=== PATIENT | female | born 1945 | race Caucasian/White ===

== ENCOUNTER 2018-01-03 12:40 | Emergency (ER) | payer MEDICARE, OTHER, MEDICAID ==
[~2018-01-03] VITALS: Ht 152.4 cm; Wt 57.3 kg
[~2018-01-03 12:40] MED LIST: ATI1T PO; DIO80T PO; FAMO-128 PO; FLUO20CA22 PO; FLUT16SP2 BOTHNARES; HYDR-3965 PO; LEVO250T58 PO; MULT1TAB70 PO
[2018-01-03 12:44] VITALS: BP 133/66
== END 2018-01-03 14:10 | disposition home or self-care (01) ==
LOC: ER 12:41
DX: N28.1 Cyst of kidney, acquired (principal); Q44.6 Cystic disease of liver; I11.0 Hypertensive heart disease with heart failure; I50.9 Heart failure, unspecified; N83.201 Unspecified ovarian cyst, right side; N83.202 Unspecified ovarian cyst, left side; Z99.2 Dependence on renal dialysis; Z90.710 Acquired absence of both cervix and uterus; Z90.49 Acquired absence of other specified parts of digestive tract; Z88.2 Allergy status to sulfonamides; Z86.73 Personal history of transient ischemic attack (TIA), and cerebral infarction without residual deficits
CPT/HCPCS: 74176; 99284

== ENCOUNTER 2019-09-08 14:14 | Emergency (ER) | payer MEDICARE, BC, MEDICAID ==
[~2019-09-08] VITALS: Ht 152.4 cm; Wt 55.5 kg
[~2019-09-08 14:14] MED LIST changes: +FLUO-167 PO; -FLUO20CA22 PO
--- NOTE | 2019-09-08 15:22 | NUR ---
PT OUT TO CT VIA WHEELCHAIR WITH PRODUCTION LINE ASSEMBLER
--- NOTE | 2019-09-08 15:39 | NUR ---
pt returns from ct
--- NOTE | 2019-09-08 15:40 | NUR ---
Came into room and pt was drinking water from home.
--- NOTE | 2019-09-08 15:54 | NUR ---
pt has fistula on left arm. no labs/iv/bp on left
[2019-09-08 16:16] LABS: BASOPHILS % (AUTO) 0.9 % (0-1); EOSINOPHILS # (AUTO) 0.1 X10'3 (0-0.9); EOSINOPHILS % (AUTO) 2.6 % (0-6); HEMATOCRIT 32.6 % (35.0-45.0); HEMOGLOBIN 10.8 g/dl (12.0-16.0); LYMPHOCYTES # (AUTO) 0.9 X10'3 (1.1-4.8); LYMPHOCYTES % (AUTO) 18.5 % (21-51); MEAN CORPUSCULAR HEMOGLOBIN 31.9 PG (27.0-31.0); MEAN CORPUSCULAR HGB CONC 33.1 g/dL (33.0-36.5); MEAN CORPUSCULAR VOLUME 96.4 FL (78-98); MONOCYTES # (AUTO) 0.5 X10'3 (0-0.9); MONOCYTES % (AUTO) 9.4 % (2-12); NEUTROPHILS # (AUTO) 3.5 X10'3 (1.8-7.7); NEUTROPHILS % (AUTO) 68.6 % (42-75); PLATELET COUNT 159 X10'3 (140-440); RED BLOOD COUNT 3.38 X10'6 (4.20-5.60); RED CELL DISTRIBUTION WIDTH 15.4 % (11.5-14.5); WHITE BLOOD COUNT 5.1 X10'3 (4.5-11.0)
[2019-09-08 16:37] LABS: ALANINE AMINOTRANSFERASE 15 U/L (12-78); ALBUMIN 3.1 G/DL (3.4-5.0); ALBUMIN/GLOBULIN RATIO 0.8 (1.1-1.5); ALKALINE PHOSPHATASE 103 IU/L (46-116); ANION GAP 7 (8-16); ASPARTATE AMINO TRANSFERASE 17 U/L (10-37); BILIRUBIN,TOTAL 0.6 MG/DL (0.1-1.0); BLOOD UREA NITROGEN 32 MG/DL (7-18); BUN/CREATININE RATIO 6.7 (6.6-38.0); CALCIUM 8.8 MG/DL (8.5-10.1); CHLORIDE 101 MMOL/L (99-107); CREATININE 4.76 MG/DL (0.40-0.90); GLUCOSE 89 MG/DL (70-104); POTASSIUM 3.3 MMOL/L (3.5-5.1); SODIUM 143 MMOL/L (135-145); TOTAL PROTEIN 7.2 G/DL (6.4-8.2); eGFR 9 ML/MIN
[2019-09-08 16:54] LABS: COLOR,URINE STRAW (Yellow); GLUCOSE, URINE NEGATIVE (Neg); KETONES,URINE NEGATIVE (Neg); LEUKOCYTE ESTERASE ,URINE NEGATIVE (Neg); NITRITES, URINE NEGATIVE (Neg); OCCULT BLOOD,URINE MODERATE (Neg); PH,URINE 8.5 (4.8-8.0); PROTEIN,URINE 100 mg/dl (Neg); UROBILINOGEN,URINE 0.2 E.U/dL (0.2-1.0)
[2019-09-08 17:01] VITALS: BP 148/70
[2019-09-08 17:01] LABS: UA COLLECTION TYPE CLN CATCH MIDSTREAM
[2019-09-08 17:02] LABS: CLARITY,URINE SLIGHTLY CLOUDY (Clear)
[2019-09-08 17:10] LABS: BACTERIA,URINE FEW /HPF (Neg); SQUAMOUS EPITHELIAL CELL,UR FEW /LPF (FEW)
== END 2019-09-08 17:04 | disposition home or self-care (01) ==
LOC: ER 14:14
DX: J90 Pleural effusion, not elsewhere classified (principal); I11.0 Hypertensive heart disease with heart failure; I50.9 Heart failure, unspecified; Z86.73 Personal history of transient ischemic attack (TIA), and cerebral infarction without residual deficits; Z90.49 Acquired absence of other specified parts of digestive tract; Z98.890 Other specified postprocedural states; Z90.710 Acquired absence of both cervix and uterus; Z99.2 Dependence on renal dialysis; Z88.2 Allergy status to sulfonamides; Z79.899 Other long term (current) drug therapy
CPT/HCPCS: 36415; 71045; 74176; 80053; 81001; 83880; 85025; 87088; 93005; 99284

== ENCOUNTER 2019-10-18 08:54 | Day surgery (SDC) | payer MEDICARE, BC, MEDICAID ==
[2019-10-18] VITALS (15 sets, daily range): BP systolic 108–133; BP diastolic 55–74
[~2019-10-18] VITALS: Ht 152.4 cm; Wt 53.6 kg
[2019-10-18] MEDS ORDERED: normal saline 1000ml 1,000 ML IV PRN (09:15)
[2019-10-18] MEDS ORDERED: LOSA50TA3 PO (09:48)
[2019-10-18] MEDS ORDERED: fentaNYL/PF 50MCG/1 ML 2ML syringe ONE ×2 (09:48→10:41)
[2019-10-18] MEDS ORDERED: MECL-159 PO (09:48)
[2019-10-18] MEDS ORDERED: LORA-660 PO (09:48)
[2019-10-18] MEDS ORDERED: ONDA4TAB12 SL (09:48)
[2019-10-18] MEDS ORDERED: ATI1T PO (09:48)
[2019-10-18] MEDS ORDERED: CALC668T PO (09:48)
[2019-10-18] MEDS ORDERED: PANT-47 PO (09:48)
[2019-10-18] MEDS ORDERED: CHOL10006 PO (09:48)
[2019-10-18] MEDS ORDERED: midazolam 2 mg/2 ml injection ONE (09:48)
[2019-10-18] MEDS ORDERED: CLOB15CR11 TOP (09:48)
[2019-10-18] MEDS ORDERED: VITA-268 PO (09:48)
[2019-10-18] MEDS ORDERED: TRIA15CR61 TOP (09:48)
[2019-10-18 10:19] LABS: BASOPHILS # (AUTO) 0.1 X10'3 (0-0.2); BASOPHILS % (AUTO) 1.1 % (0-1); EOSINOPHILS # (AUTO) 0.2 X10'3 (0-0.9); EOSINOPHILS % (AUTO) 3.4 % (0-6); HEMATOCRIT 39.3 % (35.0-45.0); HEMOGLOBIN 13.2 g/dl (12.0-16.0); LYMPHOCYTES % (AUTO) 19.9 % (21-51); MEAN CORPUSCULAR HEMOGLOBIN 31.6 PG (27.0-31.0); MEAN CORPUSCULAR HGB CONC 33.5 g/dL (33.0-36.5); MEAN CORPUSCULAR VOLUME 94.3 FL (78-98); MEAN PLATELET VOLUME 8.6 FL (7.4-10.4); MONOCYTES # (AUTO) 0.4 X10'3 (0-0.9); MONOCYTES % (AUTO) 6.8 % (2-12); NEUTROPHILS # (AUTO) 3.6 X10'3 (1.8-7.7); NEUTROPHILS % (AUTO) 68.8 % (42-75); PLATELET COUNT 178 X10'3 (140-440); RED BLOOD COUNT 4.17 X10'6 (4.20-5.60); RED CELL DISTRIBUTION WIDTH 15.2 % (11.5-14.5); WHITE BLOOD COUNT 5.3 X10'3 (4.5-11.0)
[2019-10-18 10:30] LABS: ALBUMIN 3.8 G/DL (3.4-5.0); ANION GAP 6 (8-16); BLOOD UREA NITROGEN 42 MG/DL (7-18); BUN/CREATININE RATIO 7.9 (6.6-38.0); CALCIUM 9.9 MG/DL (8.5-10.1); CHLORIDE 99 MMOL/L (99-107); GLUCOSE 83 MG/DL (70-104); POTASSIUM 4.1 MMOL/L (3.5-5.1); SODIUM 141 MMOL/L (135-145); TOTAL CARBON DIOXIDE 35.9 MMOL/L (24-32); eGFR 8 ML/MIN
== END 2019-10-18 12:10 | disposition home or self-care (01) ==
LOC: SSTAY O 08:54
PROVIDERS: ATTEND Radiology Vascular & Interventional Radiology
DX: N28.1 Cyst of kidney, acquired (principal); I11.0 Hypertensive heart disease with heart failure; I50.9 Heart failure, unspecified; Z99.2 Dependence on renal dialysis; Z90.49 Acquired absence of other specified parts of digestive tract; Z90.710 Acquired absence of both cervix and uterus; Z98.890 Other specified postprocedural states; Z88.2 Allergy status to sulfonamides; Z91.041 Radiographic dye allergy status; Z79.899 Other long term (current) drug therapy; Z86.73 Personal history of transient ischemic attack (TIA), and cerebral infarction without residual deficits
CPT/HCPCS: 36415; 49405; 80048; 85025; 85610; J2250; J3010; 99152; 99153

== ENCOUNTER 2019-11-02 11:09 | Emergency (ER) | payer MEDICARE, BC, MEDICAID ==
[~2019-11-02] VITALS: Ht 154.9 cm; Wt 50.0 kg
[~2019-11-02 11:09] MED LIST changes: +CALC668T PO; +CHOL10006 PO; +CLOB15CR11 TOP; -DIO80T PO; -LEVO250T58 PO; +LORA-660 PO; +LOSA50TA3 PO; +MECL-159 PO; +ONDA4TAB12 SL; +PANT-47 PO; +TRIA15CR61 TOP; +VITA-268 PO
[2019-11-02] MEDS ORDERED: oseltamivir phos 75mg capsule PO ONE (12:00)
[2019-11-02 12:48] LABS: BASOPHILS % (AUTO) 0.6 % (0-1); EOSINOPHILS % (AUTO) 0.1 % (0-6); HEMATOCRIT 34.9 % (35.0-45.0); HEMOGLOBIN 11.6 g/dl (12.0-16.0); LYMPHOCYTES # (AUTO) 0.7 X10'3 (1.1-4.8); LYMPHOCYTES % (AUTO) 18.4 % (21-51); MEAN CORPUSCULAR HGB CONC 33.2 g/dL (33.0-36.5); MEAN CORPUSCULAR VOLUME 93.5 FL (78-98); MEAN PLATELET VOLUME 9.1 FL (7.4-10.4); MONOCYTES # (AUTO) 0.4 X10'3 (0-0.9); MONOCYTES % (AUTO) 10.9 % (2-12); NEUTROPHILS # (AUTO) 2.6 X10'3 (1.8-7.7); PLATELET COUNT 138 X10'3 (140-440); RED BLOOD COUNT 3.74 X10'6 (4.20-5.60); RED CELL DISTRIBUTION WIDTH 15.6 % (11.5-14.5); WHITE BLOOD COUNT 3.7 X10'3 (4.5-11.0)
[2019-11-02 12:50] LABS: PARTIAL THROMBOPLASTIN TIME 32 SECONDS (22-32)
[2019-11-02 12:53] LABS: ALANINE AMINOTRANSFERASE 16 U/L (12-78); ALBUMIN/GLOBULIN RATIO 0.7 (1.1-1.5); ALKALINE PHOSPHATASE 126 IU/L (46-116); ANION GAP 9 (8-16); ASPARTATE AMINO TRANSFERASE 25 U/L (10-37); BILIRUBIN,TOTAL 0.5 MG/DL (0.1-1.0); BLOOD UREA NITROGEN 59 MG/DL (7-18); BUN/CREATININE RATIO 8.1 (6.6-38.0); CALCIUM 8.2 MG/DL (8.5-10.1); CHLORIDE 97 MMOL/L (99-107); CREATININE 7.24 MG/DL (0.40-0.90); GLUCOSE 114 MG/DL (70-104); MAGNESIUM 1.9 MG/DL (1.5-2.4); POTASSIUM 4.1 MMOL/L (3.5-5.1); SODIUM 136 MMOL/L (135-145); TOTAL CARBON DIOXIDE 30.1 MMOL/L (24-32); TOTAL PROTEIN 7.6 G/DL (6.4-8.2); eGFR 6 ML/MIN
[2019-11-02 14:09] LABS: COLOR,URINE YELLOW (Yellow); GLUCOSE, URINE NEGATIVE (Neg); KETONES,URINE NEGATIVE (Neg); LEUKOCYTE ESTERASE ,URINE NEGATIVE (Neg); NITRITES, URINE NEGATIVE (Neg); OCCULT BLOOD,URINE LARGE (Neg); PH,URINE 8.5 (4.8-8.0); PROTEIN,URINE >=300 mg/dl (Neg); UROBILINOGEN,URINE 0.2 E.U/dL (0.2-1.0)
[2019-11-02 14:13] LABS: CLARITY,URINE SLIGHTLY CLOUDY (Clear); UA COLLECTION TYPE CLN CATCH MIDSTREAM
[2019-11-02 14:23] LABS: WBC,URINE 0-4 /HPF (0-4)
[2019-11-02 14:24] LABS: BACTERIA,URINE NONE SEEN /HPF (Neg); SQUAMOUS EPITHELIAL CELL,UR FEW /LPF (FEW)
--- NOTE | 2019-11-02 14:30 | NUR ---
SPOKE WITH DR KNAPP AND INQUIRED IF PT TO IV PLACED. IV START TO BE HELD OFF UNTILL FURTHER ORDERS FROM ADMITTING MD.
[2019-11-02] MEDS ORDERED: HYDR-3964 PO (15:08)
[2019-11-02] MEDS ORDERED: FLUO-1 PO (15:10)
[2019-11-02] MEDS ORDERED: FOLI0.4T14 PO (15:13)
[2019-11-02] MEDS ORDERED: SIMV-42 PO (15:14)
[2019-11-02] MEDS ORDERED: PHO667C PO (15:23)
[2019-11-02] MEDS ORDERED: DOCU-261 PO (15:23)
[2019-11-02] MEDS ORDERED: normal saline 1000ml 250 ML IV PRN (15:58)
[2019-11-02] MEDS ORDERED: LIDOcaine 1% (10mg/ml) 2ml vial SQ ONE (16:00)
[2019-11-02] MEDS ORDERED: heparin 1,000 units/ml 10ml inj IV ONE (16:00)
--- NOTE | 2019-11-02 17:55 | NUR ---
PT WALKED TO BED 29 AND PLACED IN RECLINER. DIALYSIS NURSE IN ROOM AND SETTING UP FOR DIALYSIS
--- NOTE | 2019-11-02 18:30 | NUR ---
Pt in room with strategy intern receiving treatment.
[2019-11-02] MEDS ORDERED: TAM75C PO (18:35)
--- NOTE | 2019-11-02 19:43 | NUR ---
Pt receiving dialysis. court deputy at bedside.
[2019-11-02 21:36] VITALS: BP 123/51
== END 2019-11-02 21:37 | disposition home or self-care (01) ==
LOC: ER 11:10
DX: I12.0 Hypertensive chronic kidney disease with stage 5 chronic kidney disease or end stage renal disease (principal); N18.6 End stage renal disease; J11.1 Influenza due to unidentified influenza virus with other respiratory manifestations; Z99.2 Dependence on renal dialysis; Z86.73 Personal history of transient ischemic attack (TIA), and cerebral infarction without residual deficits; Z90.49 Acquired absence of other specified parts of digestive tract; Z90.710 Acquired absence of both cervix and uterus; Z98.890 Other specified postprocedural states; Z88.2 Allergy status to sulfonamides; Z79.899 Other long term (current) drug therapy
CPT/HCPCS: 36415; 71045; 80053; 81001; 83605; 83735; 84145; 85025; 85610; 85730; 87040; 93005; 96372; 99285; J2001; G0257

== ENCOUNTER 2019-11-18 14:51 | Outpatient (CLI) | payer MEDICARE, BC, MEDICAID ==
[~2019-11-18 14:51] MED LIST changes: -ATI1T PO; -CALC668T PO; -CLOB15CR11 TOP; +DOCU-261 PO; -FAMO-128 PO; +FLUO-1 PO; -FLUO-167 PO; +FOLI0.4T14 PO; +HYDR-3964 PO; -HYDR-3965 PO; -LORA-660 PO; -MECL-159 PO; +PHO667C PO; +SIMV-42 PO; -VITA-268 PO
== END 2019-11-18 23:59 | disposition home or self-care (01) ==
LOC: RAD 14:51
PROVIDERS: ATTEND Nurse Practitioner Family
DX: J90 Pleural effusion, not elsewhere classified (principal); J98.11 Atelectasis
CPT/HCPCS: 71046

== ENCOUNTER 2019-12-19 15:33 | Emergency (ER) | payer MEDICARE, BC, MEDICAID ==
[~2019-12-19] VITALS: Ht 152.4 cm; Wt 49.0 kg
--- NOTE | 2019-12-19 16:07 | NUR ---
Pt taken to CT
--- NOTE | 2019-12-19 16:13 | NUR ---
Return from CT scan via w/c.
--- NOTE | 2019-12-19 16:29 | NUR ---
Attempted IV start unsuccessfully x 2 on the right forearm/wrist.
[2019-12-19 16:33] VITALS: BP 131/73
[2019-12-19 16:40] LABS: BASOPHILS # (AUTO) 0.1 X10'3 (0-0.2); BASOPHILS % (AUTO) 0.6 % (0-1); EOSINOPHILS # (AUTO) 0.1 X10'3 (0-0.9); HEMATOCRIT 32.4 % (35.0-45.0); HEMOGLOBIN 10.7 g/dl (12.0-16.0); LYMPHOCYTES # (AUTO) 1.2 X10'3 (1.1-4.8); LYMPHOCYTES % (AUTO) 15.1 % (21-51); MEAN CORPUSCULAR HEMOGLOBIN 31.3 PG (27.0-31.0); MEAN CORPUSCULAR HGB CONC 33.1 g/dL (33.0-36.5); MEAN CORPUSCULAR VOLUME 94.5 FL (78-98); MEAN PLATELET VOLUME 8.3 FL (7.4-10.4); MONOCYTES # (AUTO) 0.9 X10'3 (0-0.9); MONOCYTES % (AUTO) 10.7 % (2-12); NEUTROPHILS # (AUTO) 5.8 X10'3 (1.8-7.7); NEUTROPHILS % (AUTO) 72.6 % (42-75); PLATELET COUNT 143 X10'3 (140-440); RED BLOOD COUNT 3.43 X10'6 (4.20-5.60)
[2019-12-19 16:42] LABS: CLARITY,URINE CLEAR (Clear); COLOR,URINE YELLOW (Yellow); GLUCOSE, URINE NEGATIVE (Neg); KETONES,URINE NEGATIVE (Neg); LEUKOCYTE ESTERASE ,URINE NEGATIVE (Neg); NITRITES, URINE NEGATIVE (Neg); OCCULT BLOOD,URINE SMALL (Neg); PH,URINE >=9.0 (4.8-8.0); PROTEIN,URINE 100 mg/dl (Neg); UROBILINOGEN,URINE 0.2 E.U/dL (0.2-1.0)
[2019-12-19 16:49] LABS: UA COLLECTION TYPE CLN CATCH MIDSTREAM
[2019-12-19 16:53] LABS: BACTERIA,URINE 3+ /HPF (Neg); MUCUS STRANDS NONE SEEN /LPF (Neg); SQUAMOUS EPITHELIAL CELL,UR MODERATE /LPF (FEW); WBC,URINE 0-4 /HPF (0-4)
[2019-12-19 16:56] LABS: ALANINE AMINOTRANSFERASE 15 U/L (12-78); ALBUMIN 2.9 G/DL (3.4-5.0); ALBUMIN/GLOBULIN RATIO 0.6 (1.1-1.5); ALKALINE PHOSPHATASE 117 IU/L (46-116); ANION GAP 6 (8-16); ASPARTATE AMINO TRANSFERASE 19 U/L (10-37); BILIRUBIN,TOTAL 0.7 MG/DL (0.1-1.0); BLOOD UREA NITROGEN 36 MG/DL (7-18); BUN/CREATININE RATIO 7.1 (6.6-38.0); CALCIUM 8.3 MG/DL (8.5-10.1); CHLORIDE 96 MMOL/L (99-107); CREATININE 5.08 MG/DL (0.40-0.90); GLUCOSE 81 MG/DL (70-104); LIPASE 335 U/L (73-393); POTASSIUM 3.6 MMOL/L (3.5-5.1); SODIUM 136 MMOL/L (135-145); TOTAL CARBON DIOXIDE 34.4 MMOL/L (24-32); TOTAL PROTEIN 7.7 G/DL (6.4-8.2); eGFR 8 ML/MIN
[2019-12-19] MEDS ORDERED: mag hydrox/Alum hydrox/simeth 30ml oral suspension PO ONE (17:10)
[2019-12-19] MEDS ORDERED: LIDOcaine Viscous 15ml cup MM ONE (17:10)
[2019-12-19] MEDS ORDERED: pantoprazole 40mg Tablet.DR PO ONE (17:10)
== END 2019-12-19 17:43 | disposition home or self-care (01) ==
LOC: ER 15:33
DX: R10.11 Right upper quadrant pain (principal); I50.9 Heart failure, unspecified; I13.2 Hypertensive heart and chronic kidney disease with heart failure and with stage 5 chronic kidney disease, or end stage renal disease; N18.6 End stage renal disease; Z99.2 Dependence on renal dialysis; Z90.49 Acquired absence of other specified parts of digestive tract; Z90.710 Acquired absence of both cervix and uterus; Z98.890 Other specified postprocedural states; Z88.2 Allergy status to sulfonamides; Z79.899 Other long term (current) drug therapy
CPT/HCPCS: 36415; 74176; 80053; 81001; 83690; 85025; 99284

== ENCOUNTER 2020-05-29 11:18 | Day surgery (SDC) | payer MEDICARE, BC, MEDICAID ==
[~2020-05-29] VITALS: Ht 152.4 cm; Wt 52.7 kg
[2020-05-29 11:35] VITALS: BP 153/68
[2020-05-29] MEDS ORDERED: normal saline 1000ml 1,000 ML IV SCH (12:05)
[2020-05-29 12:16] LABS: BASOPHILS # (AUTO) 0.1 X10'3 (0-0.2); EOSINOPHILS # (AUTO) 0.2 X10'3 (0-0.9); LYMPHOCYTES # (AUTO) 1.3 X10'3 (1.1-4.8); MONOCYTES # (AUTO) 0.4 X10'3 (0-0.9); RED BLOOD COUNT 4.15 X10'6 (4.20-5.60)
[2020-05-29 12:18] LABS: BASOPHILS % (AUTO) 1.5 % (0-1); EOSINOPHILS % (AUTO) 3.8 % (0-6); HEMATOCRIT 39.5 % (35.0-45.0); HEMOGLOBIN 12.9 g/dl (12.0-16.0); LYMPHOCYTES % (AUTO) 25.7 % (21-51); MEAN CORPUSCULAR HGB CONC 32.6 g/dL (33.0-36.5); MEAN CORPUSCULAR VOLUME 95.3 FL (78-98); MEAN PLATELET VOLUME 7.8 FL (7.4-10.4); MONOCYTES % (AUTO) 8.2 % (2-12); NEUTROPHILS % (AUTO) 60.8 % (42-75); PLATELET COUNT 186 X10'3 (140-440); RED CELL DISTRIBUTION WIDTH 16.2 % (11.5-14.5)
[2020-05-29] MEDS ORDERED: ALPR-624 PO (12:52)
[2020-05-29] MEDS ORDERED: BOTOX (12:56)
[2020-05-29] MEDS ORDERED: midazolam 2 mg/2 ml injection ONE ×2 (13:05→13:33)
[2020-05-29] MEDS ORDERED: fentaNYL/PF 50MCG/1 ML 2ML syringe ONE ×2 (13:05→13:33)
[2020-05-29 14:40] VITALS: BP 175/75
[2020-05-29 14:53] VITALS: BP 171/87
[2020-05-29 15:08] VITALS: BP 163/65
[2020-05-29 15:23] VITALS: BP 152/60
== END 2020-05-29 15:55 | disposition home or self-care (01) ==
LOC: SSTAY O 11:18
PROVIDERS: ATTEND Radiology Vascular & Interventional Radiology
DX: N28.1 Cyst of kidney, acquired (principal); Z20.828 Contact with and (suspected) exposure to other viral communicable diseases
CPT/HCPCS: 36415; 50390; 76942; 85025; 87635; J2250; J3010; 99152; 99153

== ENCOUNTER 2021-03-14 06:37 | Day surgery (SDC) | payer MEDICARE, BC, MEDICAID ==
[~2021-03-14] VITALS: Ht 152.4 cm; Wt 50.5 kg
[2021-03-14] VITALS (27 sets, daily range): BP systolic 132–163; BP diastolic 49–97
[~2021-03-14 06:37] MED LIST changes: +ALPR-624 PO; +BOTOX; -DOCU-261 PO; +DOCU-337 PO; -MULT1TAB70 PO; +MULT1TAB71 PO; -PANT-47 PO; -TRIA15CR61 TOP
[2021-03-14] MEDS ORDERED: normal saline 1000ml 1,000 ML IV PRN (07:35)
[2021-03-14] MEDS ORDERED: midazolam 1 mg/ML 2ml injection ONE ×2 (09:57→10:52)
[2021-03-14] MEDS ORDERED: fentaNYL/PF 50MCG/1 ML 2ML syringe ONE ×2 (09:57→10:52)
[2021-03-14] MEDS ORDERED: ceFAZolin/D5W- 1GM premix 50 ML IV ONE (11:00)
--- NOTE | 2021-03-14 11:45 | NUR ---
Report by MARGO Baptiste-Rt flank w hematoma-parameters clearly marked-Drsg is CDI-Pt on Rt side w/rolled towel for pressure-Pt stated no pain-abdomen non rigid Addendum: 03/14/21 at 1506 by Franca Ariza RN Amended: Links added.
== END 2021-03-14 14:45 | disposition home or self-care (01) ==
LOC: SSTAY O 06:37
PROVIDERS: ATTEND Radiology Vascular & Interventional Radiology
DX: N28.1 Cyst of kidney, acquired (principal); Z88.2 Allergy status to sulfonamides; Z91.041 Radiographic dye allergy status; Z79.899 Other long term (current) drug therapy; Z90.49 Acquired absence of other specified parts of digestive tract; Z98.890 Other specified postprocedural states; Z90.710 Acquired absence of both cervix and uterus; Z82.71 Family history of polycystic kidney
CPT/HCPCS: 50390; 76942; 99152; 99153; J2250; J3010

== ENCOUNTER 2021-06-11 19:33 | Emergency (ER) | payer MEDICARE, BC, MEDICAID | END 2021-06-11 22:19 | disposition left against medical advice (07) | LOC: ER 19:34 | DX: U07.1 COVID-19 (principal); Z53.21 Procedure and treatment not carried out due to patient leaving prior to being seen by health care provider ==

== ENCOUNTER 2021-11-13 15:01 | Emergency (ER) | payer MEDICARE, MEDICAID ==
[~2021-11-13] VITALS: Ht 152.4 cm; Wt 45.5 kg
[~2021-11-13 15:01] MED LIST changes: -ALPR-624 PO; -BOTOX; -DOCU-337 PO; -FLUO-1 PO; +FLUO-211 PO; -FLUT16SP2 BOTHNARES; -FOLI0.4T14 PO; +FOLI1TAB27 PO; -HYDR-3964 PO; +LOSA25TA41 PO; -LOSA50TA3 PO; -MULT1TAB71 PO; -ONDA4TAB12 SL; +PANT40TA54 PO; -PHO667C PO; -SIMV-42 PO
[2021-11-13 17:03] VITALS: BP 137/71
== END 2021-11-13 17:05 | disposition home or self-care (01) ==
LOC: ER 15:02
DX: N18.6 End stage renal disease (principal); R53.1 Weakness; Z86.73 Personal history of transient ischemic attack (TIA), and cerebral infarction without residual deficits; Z99.2 Dependence on renal dialysis; Z90.89 Acquired absence of other organs; Z90.49 Acquired absence of other specified parts of digestive tract; Z90.710 Acquired absence of both cervix and uterus; Z88.2 Allergy status to sulfonamides; Z88.8 Allergy status to other drugs, medicaments and biological substances; Z79.899 Other long term (current) drug therapy
CPT/HCPCS: 93005; 99283

== ENCOUNTER 2021-11-18 16:11 | Inpatient (IN) | payer MEDICARE, MEDICAID ==
[~2021-11-18] VITALS: Ht 162.6 cm; Wt 47.7 kg
[2021-11-18 18:19] LABS: BASOPHILS # (AUTO) 0.1 X10'3 (0-0.2); BASOPHILS % (AUTO) 1.4 % (0-1); EOSINOPHILS # (AUTO) 0.3 X10'3 (0-0.9); EOSINOPHILS % (AUTO) 6.2 % (0-6); HEMATOCRIT 25.4 % (35.0-45.0); HEMOGLOBIN 8.3 g/dl (12.0-16.0); LYMPHOCYTES # (AUTO) 1.2 X10'3 (1.1-4.8); LYMPHOCYTES % (AUTO) 22.5 % (21-51); MEAN CORPUSCULAR HEMOGLOBIN 29.2 PG (27.0-31.0); MEAN CORPUSCULAR HGB CONC 32.9 g/dL (33.0-36.5); MEAN CORPUSCULAR VOLUME 88.9 FL (78-98); MEAN PLATELET VOLUME 7.9 FL (7.4-10.4); MONOCYTES # (AUTO) 0.5 X10'3 (0-0.9); MONOCYTES % (AUTO) 9.6 % (2-12); NEUTROPHILS # (AUTO) 3.2 X10'3 (1.8-7.7); NEUTROPHILS % (AUTO) 60.3 % (42-75); PLATELET COUNT 196 X10'3 (140-440); RED BLOOD COUNT 2.85 X10'6 (4.20-5.60); RED CELL DISTRIBUTION WIDTH 20.4 % (11.5-14.5); WHITE BLOOD COUNT 5.3 X10'3 (4.5-11.0)
[2021-11-18 18:42] LABS: ALANINE AMINOTRANSFERASE 12 U/L (12-78); ALBUMIN 2.3 G/DL (3.4-5.0); ALBUMIN/GLOBULIN RATIO 0.6 (1.1-1.5); ALKALINE PHOSPHATASE 118 IU/L (46-116); ANION GAP 7 (8-16); ASPARTATE AMINO TRANSFERASE 18 U/L (10-37); BILIRUBIN,TOTAL 0.4 MG/DL (0.1-1.0); BLOOD UREA NITROGEN 46 MG/DL (7-18); BUN/CREATININE RATIO 7.5 (6.6-38.0); CALCIUM 8.3 MG/DL (8.5-10.1); CHLORIDE 99 MMOL/L (99-107); CREATININE 6.12 MG/DL (0.40-0.90); GLUCOSE 68 MG/DL (70-104); POTASSIUM 4.4 MMOL/L (3.5-5.1); SODIUM 141 MMOL/L (135-145); TOTAL PROTEIN 6.3 G/DL (6.4-8.2); eGFR 7 ML/MIN
[2021-11-18 18:46] LABS: PHOSPHORUS 5.1 MG/DL (2.3-4.5)
[2021-11-18] MEDS ORDERED: HYDR-3964 PO (23:09)
[2021-11-18] MEDS ORDERED: OMEP40CA21 PO (23:09)
[2021-11-18] MEDS ORDERED: ALPR0.5T8 PO (23:09)
[2021-11-19] VITALS (10 sets, daily range): BP systolic 109–193; BP diastolic 58–80
[2021-11-19] MEDS ORDERED: acetaminophen 650mg rectal suppository RC PRN
[2021-11-19] MEDS ORDERED: magnesium hydroxide 30ml (MOM) UD suspension PO PRN
[2021-11-19] MEDS ORDERED: ondansetron 4mg rapidly disintigrating tab PO PRN
[2021-11-19] MEDS ORDERED: ondansetron/PF 4mg/2ml inj IV PRN
[2021-11-19] MEDS ORDERED: mag hydrox/Alum hydrox/simeth 30ml oral suspension PO PRN
[2021-11-19] MEDS ORDERED: acetaminophen 325mg tablet PO PRN ×2
[2021-11-19] MEDS ORDERED: diphenhydrAMINE 25mg capsule PO PRN
[2021-11-19] MEDS ORDERED: diphenhydrAMINE 50 mg/ml inj IV PRN
[2021-11-19] MEDS ORDERED: bisacodyl 10mg suppository rectal RC PRN
[2021-11-19 01:17] LABS: LIPASE 434 U/L (73-393)
[2021-11-19] MEDS: dextrose 5%-1/2 normal saline 1,000 ML IV SCH (01:23)
[2021-11-19 01:25] LABS: COLOR,URINE YELLOW (Yellow); GLUCOSE, URINE 100 mg/dl (Neg); KETONES,URINE NEGATIVE (Neg); LEUKOCYTE ESTERASE ,URINE SMALL (Neg); NITRITES, URINE NEGATIVE (Neg); OCCULT BLOOD,URINE SMALL (Neg); PH,URINE 8.5 (4.8-8.0); PROTEIN,URINE 30 mg/dl (Neg); UROBILINOGEN,URINE 0.2 E.U/dL (0.2-1.0)
[2021-11-19 01:32] LABS: CLARITY,URINE SLIGHTLY CLOUDY (Clear); UA COLLECTION TYPE NON-SPECIFIED
[2021-11-19 01:33] LABS: BACTERIA,URINE FEW /HPF (Neg); RBC,URINE 0-2 /HPF (0-2); SQUAMOUS EPITHELIAL CELL,UR MODERATE /LPF (FEW)
--- NOTE | 2021-11-19 02:07 | NUR ---
The patient, LISA DELGADO, 76 y/o, F admitted by KIM ELENA MD. Report received from Gloria ARAGON .Patient arrived on unit via wheelchair accompanied by RN and was roomed into 352.Patient is awake and alert x 2.Pt assisted to the bathroom then to bed.Orientation to room and call light provided. VSS pt denies pain and appears comfortable at this time. Will continue to monitor.
[2021-11-19 02:09] LABS: APTT 26 SECONDS (22-32)
--- NOTE | 2021-11-19 06:35 | NUR ---
Problems reprioritized. Patient report given, questions answered & plan of care reviewed with Cira ARAGON.
--- NOTE | 2021-11-19 06:47 | NUR ---
Problems reprioritized. Patient report received, questions answered & plan of care reviewed with DREW ARAGON.
[2021-11-19] MEDS: losartan 25mg tablet PO SCH (07:40)
[2021-11-19] MEDS: FLUoxetine 20mg capsule PO SCH ×2 (07:41→20:36)
[2021-11-19] MEDS: piperacillin/tazo 4.5gm/100ml 100 ML IV SCH ×2 (07:42→20:00)
[2021-11-19] MEDS ORDERED: pantoprazole 40mg Tablet.DR PO SCH (08:00)
[2021-11-19] MEDS ORDERED: heparin, porcine 5000 units/ml vial SQ SCH (08:00)
[2021-11-19] MEDS ORDERED: docusate sod 100mg capsule PO SCH (08:00)
--- NOTE | 2021-11-19 09:30 | NUR ---
call received from [facility] Account Services Specialist stated that " patient had some swallowing problems in the past". order placed and page sent to [facility] speech therapist.
--- NOTE | 2021-11-19 09:45 | NUR ---
called received from lab A1c drawn on 10/25. it is too early for another one. order cancelled.
[2021-11-19] MEDS ORDERED: albumin (human) 25% 100ml IV 100 ML IV PRN (10:10)
[2021-11-19] MEDS ORDERED: heparin 1,000unit/ml 10ml vial 10 ML IV ONE (10:10)
[2021-11-19] MEDS ORDERED: EPOETIN ALFA-EPBX 20,000 UNIT/ML 1 ML MDV IV ONE (10:10)
[2021-11-19] MEDS ORDERED: heparin 1,000 units/ml 10ml inj IV ONE (10:10)
--- NOTE | 2021-11-19 10:45 | NUR ---
IV is out a couple nurses tried a couple times but unable too. picc line nurse paged.
--- NOTE | 2021-11-19 12:06 | NUR ---
Nutrition consult: Pt admitted w/ ALOC and metabolic encephalopathy w/ hx of ESRD on HD per EMR. Noted BMI of 18 though pt currently 64in while previous admits she was 60in. True BMI likely 20-22. Current wt not scaled though previous wt 3/7 50kg. Pt previously receiving TF on recent admit and was eventually advanced to MM5 diet. D/w RN recommendation for BSS this admit; DRESS FITTER has since seen pt and states no difficulties chewing or swallowing. Pt has consumed 75% of first meal on Renal diet. No edema noted and appears WD/WN per MD note. Pt does not meet minimum criteria for malnutrition at this time. No nutrition intervention implemented at this time, will continue to monitor. Addendum: 11/19/21 at [address] Amended: Links added.
[2021-11-19] MEDS ORDERED: morphine 2 MG/ML inj. syringe IV PRN ×3 (12:15)
[2021-11-19] MEDS ORDERED: HYDROcodone/acetaminophen 5mg/325mg tablet PO PRN ×2 (12:15)
--- NOTE | 2021-11-19 12:17 | NUR ---
patient has around 800 cc bloody emesis with some chunk of clots, black stool, sample sent to lab. Dr Panchal notified and came to verified. V/S stable T98.3 P 90 R18 B/P 139/60. will continue to monitor.
[2021-11-19 13:13] LABS: BASOPHILS # (AUTO) 0.1 X10'3 (0-0.2); BASOPHILS % (AUTO) 0.9 % (0-1); EOSINOPHILS # (AUTO) 0.2 X10'3 (0-0.9); EOSINOPHILS % (AUTO) 3.4 % (0-6); HEMATOCRIT 23.1 % (35.0-45.0); HEMOGLOBIN 7.5 g/dl (12.0-16.0); LYMPHOCYTES # (AUTO) 0.9 X10'3 (1.1-4.8); LYMPHOCYTES % (AUTO) 14.6 % (21-51); MEAN CORPUSCULAR HEMOGLOBIN 28.8 PG (27.0-31.0); MEAN CORPUSCULAR HGB CONC 32.4 g/dL (33.0-36.5); MEAN PLATELET VOLUME 7.9 FL (7.4-10.4); MONOCYTES # (AUTO) 0.5 X10'3 (0-0.9); MONOCYTES % (AUTO) 8.9 % (2-12); NEUTROPHILS # (AUTO) 4.4 X10'3 (1.8-7.7); NEUTROPHILS % (AUTO) 72.2 % (42-75); PLATELET COUNT 194 X10'3 (140-440); RED BLOOD COUNT 2.59 X10'6 (4.20-5.60); RED CELL DISTRIBUTION WIDTH 20.3 % (11.5-14.5); WHITE BLOOD COUNT 6.1 X10'3 (4.5-11.0)
--- NOTE | 2021-11-19 13:20 | NUR ---
called facundo no answer left a message
[2021-11-19 13:22] LABS: ALANINE AMINOTRANSFERASE 10 U/L (12-78); ALBUMIN/GLOBULIN RATIO 0.5 (1.1-1.5); ALKALINE PHOSPHATASE 100 IU/L (46-116); ANION GAP 10 (8-16); ASPARTATE AMINO TRANSFERASE 17 U/L (10-37); BILIRUBIN,TOTAL 0.5 MG/DL (0.1-1.0); BLOOD UREA NITROGEN 69 MG/DL (7-18); BUN/CREATININE RATIO 9.9 (6.6-38.0); CHLORIDE 98 MMOL/L (99-107); CREATININE 6.99 MG/DL (0.40-0.90); GLUCOSE 96 MG/DL (70-104); POTASSIUM 5.3 MMOL/L (3.5-5.1); SODIUM 141 MMOL/L (135-145); TOTAL CARBON DIOXIDE 33.1 MMOL/L (24-32); TOTAL PROTEIN 5.7 G/DL (6.4-8.2); eGFR 6 ML/MIN
--- NOTE | 2021-11-19 13:26 | NUR ---
PATIENT TRANSFERRED TO TELEMETRY REPORT GIVEN TO THE RECEIVING RN.
[2021-11-19 13:40] LABS: ANISOCYTOSIS 3+; PLATELET ESTIMATE NORMAL
[2021-11-19 15:06] LABS: OCCULT BLOOD STOOL POSITIVE (Neg)
[2021-11-19] MEDS ORDERED: LIDOcaine 1% (10mg/ml) 2ml vial SQ ONE (15:50)
[2021-11-19 16:41] LABS: BASOPHILS # (AUTO) 0.1 X10'3 (0-0.2); BASOPHILS % (AUTO) 1.4 % (0-1); EOSINOPHILS # (AUTO) 0.1 X10'3 (0-0.9); EOSINOPHILS % (AUTO) 2.2 % (0-6); LYMPHOCYTES # (AUTO) 1.3 X10'3 (1.1-4.8); MEAN CORPUSCULAR HEMOGLOBIN 28.7 PG (27.0-31.0); MEAN CORPUSCULAR HGB CONC 32.5 g/dL (33.0-36.5); MEAN CORPUSCULAR VOLUME 88.4 FL (78-98); MONOCYTES # (AUTO) 0.5 X10'3 (0-0.9); MONOCYTES % (AUTO) 7.3 % (2-12); NEUTROPHILS # (AUTO) 4.4 X10'3 (1.8-7.7); NEUTROPHILS % (AUTO) 68.1 % (42-75); PLATELET COUNT 199 X10'3 (140-440); WHITE BLOOD COUNT 6.4 X10'3 (4.5-11.0)
[2021-11-19 16:46] LABS: HEMATOCRIT 21.2 % (35.0-45.0); HEMOGLOBIN 6.9 g/dl (12.0-16.0)
--- NOTE | 2021-11-19 16:56 | NUR ---
critical hgb of 6.9, hct of 21.2.. paged of these critical values. PAGER ID: [phone] MESSAGE: [id number] TOMLIN: doc, just to let u know of patient's critical hgb of 6.9 from 7.5, and hematocrit of 21.2 from 23.1.HD is currentlty ongoing.
[2021-11-19 17:10] LABS: ANISOCYTOSIS 2+; PLATELET ESTIMATE NORMAL
[2021-11-19] MEDS: pantoprazole 40MG/NS 100ML BAG 100 ML IV SCH ×2 (17:23→20:39)
--- NOTE | 2021-11-19 18:38 | NUR ---
Problems reprioritized. Patient report given, questions answered & plan of care reviewed with Marina ARAGON.
[2021-11-19] MEDS ORDERED: temazepam 15mg capsule PO PRN (21:00)
[2021-11-19] MEDS ORDERED: dextrose 50%-water 50ml dispensing syringe IV PRN ×2 (21:00)
[2021-11-20] VITALS (7 sets, daily range): BP systolic 150–167; BP diastolic 56–64
[2021-11-20] MEDS: metroNIDAZOLE-Flagyl 500mg/NS 100 ML IV SCH ×3 (00:16→21:18)
--- NOTE | 2021-11-20 02:06 | NUR ---
The Zosyn dose was not given at 8pm. Patient was getting Hemodialysis, the blood transfusion. After 2 am the dose was moved to 8 am as per pharmacy.
[2021-11-20] MEDS: pantoprazole 40MG/NS 100ML BAG 100 ML IV SCH ×5 (03:12→21:18)
[2021-11-20 06:37] LABS: BASOPHILS # (AUTO) 0.1 X10'3 (0-0.2); BASOPHILS % (AUTO) 1.3 % (0-1); EOSINOPHILS # (AUTO) 0.1 X10'3 (0-0.9); EOSINOPHILS % (AUTO) 2.5 % (0-6); HEMATOCRIT 23.9 % (35.0-45.0); HEMOGLOBIN 7.9 g/dl (12.0-16.0); LYMPHOCYTES # (AUTO) 1.1 X10'3 (1.1-4.8); LYMPHOCYTES % (AUTO) 23.1 % (21-51); MEAN CORPUSCULAR HEMOGLOBIN 30.3 PG (27.0-31.0); MEAN CORPUSCULAR HGB CONC 33.1 g/dL (33.0-36.5); MEAN CORPUSCULAR VOLUME 91.6 FL (78-98); MEAN PLATELET VOLUME 7.9 FL (7.4-10.4); MONOCYTES # (AUTO) 0.5 X10'3 (0-0.9); MONOCYTES % (AUTO) 10.1 % (2-12); NEUTROPHILS # (AUTO) 2.9 X10'3 (1.8-7.7); PLATELET COUNT 165 X10'3 (140-440); RED BLOOD COUNT 2.61 X10'6 (4.20-5.60); RED CELL DISTRIBUTION WIDTH 20.1 % (11.5-14.5); WHITE BLOOD COUNT 4.7 X10'3 (4.5-11.0)
[2021-11-20 06:58] LABS: ALANINE AMINOTRANSFERASE 11 U/L (12-78); ALBUMIN 2.1 G/DL (3.4-5.0); ALBUMIN/GLOBULIN RATIO 0.6 (1.1-1.5); ALKALINE PHOSPHATASE 90 IU/L (46-116); ANION GAP 9 (8-16); ASPARTATE AMINO TRANSFERASE 20 U/L (10-37); BILIRUBIN,TOTAL 0.6 MG/DL (0.1-1.0); BLOOD UREA NITROGEN 25 MG/DL (7-18); BUN/CREATININE RATIO 7.2 (6.6-38.0); CALCIUM 8.4 MG/DL (8.5-10.1); CHLORIDE 102 MMOL/L (99-107); CREATININE 3.45 MG/DL (0.40-0.90); GLUCOSE 79 MG/DL (70-104); POTASSIUM 4.2 MMOL/L (3.5-5.1); SODIUM 140 MMOL/L (135-145); TOTAL CARBON DIOXIDE 29.1 MMOL/L (24-32); TOTAL PROTEIN 5.5 G/DL (6.4-8.2); eGFR 13 ML/MIN
[2021-11-20] MEDS: FLUoxetine 20mg capsule PO SCH ×2 (08:51→21:16)
[2021-11-20] MEDS: ciprofloxacin lact 400MG/200ML 200 ML IV SCH (08:59)
[2021-11-20] MEDS: piperacillin/tazo 4.5gm/100ml 100 ML IV SCH (10:05)
[2021-11-20 13:43] LABS: CLARITY,URINE SLIGHTLY CLOUDY (Clear); GLUCOSE, URINE 100 mg/dl (Neg); KETONES,URINE NEGATIVE (Neg); LEUKOCYTE ESTERASE ,URINE NEGATIVE (Neg); NITRITES, URINE NEGATIVE (Neg); OCCULT BLOOD,URINE MODERATE (Neg); PH,URINE 8.5 (4.8-8.0); PROTEIN,URINE 30 mg/dl (Neg); UROBILINOGEN,URINE 0.2 E.U/dL (0.2-1.0)
[2021-11-20 13:44] LABS: COLOR,URINE STRAW (Yellow); UA COLLECTION TYPE NON-SPECIFIED; URINE AMPHETAMINE SCREEN NEGATIVE (Neg); URINE BARBITUATE SCREEN NEGATIVE (Neg); URINE BENZODIAZEPINES SCREEN NEGATIVE (Neg); URINE CANNABINOID SCREEN NEGATIVE (Neg); URINE COCAINE SCREEN NEGATIVE (Neg); URINE METHADONE SCREEN NEGATIVE (Neg); URINE OPIATE SCREEN NEGATIVE (Neg); URINE PHENCYCLIDINE SCREEN NEGATIVE (Neg)
[2021-11-20 13:48] LABS: SQUAMOUS EPITHELIAL CELL,UR MANY /LPF (FEW)
[2021-11-20 13:49] LABS: BACTERIA,URINE FEW /HPF (Neg); WBC,URINE 0-4 /HPF (0-4)
[2021-11-20 13:50] LABS: TRANSITIONAL EPI CELLS,URINE FEW /HPF
[2021-11-20] MEDS: dextrose 5%-1/2 normal saline 1,000 ML IV SCH (14:17)
--- NOTE | 2021-11-20 18:37 | NUR ---
Problems reprioritized. Patient report given, questions answered & plan of care reviewed with Freda/Erick ARAGON.
[2021-11-21] VITALS (11 sets, daily range): BP systolic 142–198; BP diastolic 56–90
[2021-11-21] MEDS: pantoprazole 40MG/NS 100ML BAG 100 ML IV SCH ×5 (01:35→20:35)
[2021-11-21] MEDS: dextrose 5%-1/2 normal saline 1,000 ML IV SCH ×2 (02:00→15:53)
[2021-11-21 07:11] LABS: EOSINOPHILS # (AUTO) 0.1 X10'3 (0-0.9); EOSINOPHILS % (AUTO) 3.1 % (0-6); HEMATOCRIT 23.2 % (35.0-45.0); HEMOGLOBIN 7.6 g/dl (12.0-16.0); LYMPHOCYTES # (AUTO) 0.8 X10'3 (1.1-4.8); LYMPHOCYTES % (AUTO) 17.2 % (21-51); MEAN CORPUSCULAR HGB CONC 32.8 g/dL (33.0-36.5); MEAN CORPUSCULAR VOLUME 91.5 FL (78-98); MONOCYTES # (AUTO) 0.4 X10'3 (0-0.9); MONOCYTES % (AUTO) 9.5 % (2-12); NEUTROPHILS # (AUTO) 3.1 X10'3 (1.8-7.7); NEUTROPHILS % (AUTO) 69.2 % (42-75); PLATELET COUNT 146 X10'3 (140-440); RED BLOOD COUNT 2.53 X10'6 (4.20-5.60); RED CELL DISTRIBUTION WIDTH 20.1 % (11.5-14.5); WHITE BLOOD COUNT 4.4 X10'3 (4.5-11.0)
[2021-11-21 07:30] LABS: ALANINE AMINOTRANSFERASE 9 U/L (12-78); ALBUMIN/GLOBULIN RATIO 0.6 (1.1-1.5); ALKALINE PHOSPHATASE 86 IU/L (46-116); ANION GAP 11 (8-16); ASPARTATE AMINO TRANSFERASE 13 U/L (10-37); BILIRUBIN,TOTAL 0.5 MG/DL (0.1-1.0); BLOOD UREA NITROGEN 31 MG/DL (7-18); BUN/CREATININE RATIO 6.8 (6.6-38.0); CALCIUM 8.3 MG/DL (8.5-10.1); CHLORIDE 98 MMOL/L (99-107); CREATININE 4.55 MG/DL (0.40-0.90); GLUCOSE 94 MG/DL (70-104); SODIUM 135 MMOL/L (135-145); TOTAL CARBON DIOXIDE 26.4 MMOL/L (24-32); TOTAL PROTEIN 5.5 G/DL (6.4-8.2); eGFR 9 ML/MIN
[2021-11-21] MEDS: FLUoxetine 20mg capsule PO SCH ×2 (08:00→20:35)
[2021-11-21] MEDS: losartan 25mg tablet PO SCH (08:00)
[2021-11-21] MEDS ORDERED: EPOETIN ALFA-EPBX 20,000 UNIT/ML 1 ML MDV IV ONE (08:00)
[2021-11-21] MEDS: ciprofloxacin lact 400MG/200ML 200 ML IV SCH (08:00)
[2021-11-21] MEDS ORDERED: heparin 1,000 units/ml 10ml inj IV ONE (08:00)
[2021-11-21] MEDS ORDERED: heparin 1,000unit/ml 10ml vial 10 ML IV ONE (08:00)
[2021-11-21] MEDS: metroNIDAZOLE-Flagyl 500mg/NS 100 ML IV SCH ×2 (08:00→20:35)
[2021-11-21] MEDS ORDERED: LIDOcaine 1% (10mg/ml) 2ml vial SQ ONE (10:30)
[2021-11-21] MEDS ORDERED: MIDAZolam 1 MG/ML 5ML VIAL ONE (15:46)
[2021-11-21] MEDS ORDERED: LIDOcaine Viscous 15ml cup ONE (15:46)
[2021-11-21] MEDS ORDERED: fentaNYL/PF 50MCG/1 ML 2ML syringe ONE (15:46)
--- NOTE | 2021-11-21 18:43 | NUR ---
Problems reprioritized. Patient report given, questions answered & plan of care reviewed with Romel ARAGON.
[2021-11-22 02:00] VITALS: BP 150/59
[2021-11-22] MEDS: pantoprazole 40MG/NS 100ML BAG 100 ML IV SCH ×3 (02:04→20:27)
[2021-11-22 06:00] VITALS: BP 151/51
[2021-11-22 06:04] LABS: BASOPHILS # (AUTO) 0.1 X10'3 (0-0.2); BASOPHILS % (AUTO) 1.6 % (0-1); EOSINOPHILS # (AUTO) 0.1 X10'3 (0-0.9); EOSINOPHILS % (AUTO) 2.5 % (0-6); HEMATOCRIT 23.5 % (35.0-45.0); HEMOGLOBIN 7.7 g/dl (12.0-16.0); LYMPHOCYTES # (AUTO) 0.8 X10'3 (1.1-4.8); LYMPHOCYTES % (AUTO) 22.5 % (21-51); MEAN CORPUSCULAR HGB CONC 32.6 g/dL (33.0-36.5); MEAN CORPUSCULAR VOLUME 92.1 FL (78-98); MEAN PLATELET VOLUME 7.9 FL (7.4-10.4); MONOCYTES # (AUTO) 0.4 X10'3 (0-0.9); MONOCYTES % (AUTO) 11.7 % (2-12); NEUTROPHILS # (AUTO) 2.1 X10'3 (1.8-7.7); NEUTROPHILS % (AUTO) 61.7 % (42-75); PLATELET COUNT 138 X10'3 (140-440); RED BLOOD COUNT 2.55 X10'6 (4.20-5.60); RED CELL DISTRIBUTION WIDTH 20.5 % (11.5-14.5); WHITE BLOOD COUNT 3.5 X10'3 (4.5-11.0)
[2021-11-22 06:46] LABS: ALANINE AMINOTRANSFERASE 8 U/L (12-78); ALBUMIN/GLOBULIN RATIO 0.6 (1.1-1.5); ALKALINE PHOSPHATASE 87 IU/L (46-116); ANION GAP 10 (8-16); ASPARTATE AMINO TRANSFERASE 17 U/L (10-37); BILIRUBIN,TOTAL 0.4 MG/DL (0.1-1.0); BLOOD UREA NITROGEN 12 MG/DL (7-18); BUN/CREATININE RATIO 3.8 (6.6-38.0); CALCIUM 8.5 MG/DL (8.5-10.1); CHLORIDE 103 MMOL/L (99-107); CREATININE 3.14 MG/DL (0.40-0.90); GLUCOSE 107 MG/DL (70-104); POTASSIUM 3.8 MMOL/L (3.5-5.1); SODIUM 140 MMOL/L (135-145); TOTAL CARBON DIOXIDE 26.9 MMOL/L (24-32); TOTAL PROTEIN 5.4 G/DL (6.4-8.2); eGFR 14 ML/MIN
[2021-11-22] MEDS: FLUoxetine 20mg capsule PO SCH ×2 (08:14→20:27)
[2021-11-22] MEDS: losartan 25mg tablet PO SCH (08:15)
[2021-11-22] MEDS: ciprofloxacin lact 400MG/200ML 200 ML IV SCH (08:16)
[2021-11-22] MEDS: metroNIDAZOLE-Flagyl 500mg/NS 100 ML IV SCH ×2 (08:16→20:27)
[2021-11-22 11:00] VITALS: BP 159/65
[2021-11-22 15:00] VITALS: BP 156/66
[2021-11-22 18:00] VITALS: BP 156/53
[2021-11-22 22:00] VITALS: BP 165/63
[2021-11-23 02:00] VITALS: BP 155/66
[2021-11-23] MEDS: dextrose 5%-1/2 normal saline 1,000 ML IV SCH (04:00)
[2021-11-23 06:00] VITALS: BP 163/62
[2021-11-23 06:47] LABS: BASOPHILS % (AUTO) 1.2 % (0-1); EOSINOPHILS # (AUTO) 0.1 X10'3 (0-0.9); EOSINOPHILS % (AUTO) 2.9 % (0-6); HEMATOCRIT 23.9 % (35.0-45.0); HEMOGLOBIN 7.9 g/dl (12.0-16.0); LYMPHOCYTES # (AUTO) 0.8 X10'3 (1.1-4.8); LYMPHOCYTES % (AUTO) 22.1 % (21-51); MEAN CORPUSCULAR HEMOGLOBIN 30.7 PG (27.0-31.0); MEAN CORPUSCULAR VOLUME 92.9 FL (78-98); MEAN PLATELET VOLUME 7.9 FL (7.4-10.4); MONOCYTES # (AUTO) 0.4 X10'3 (0-0.9); MONOCYTES % (AUTO) 10.1 % (2-12); NEUTROPHILS # (AUTO) 2.4 X10'3 (1.8-7.7); NEUTROPHILS % (AUTO) 63.7 % (42-75); PLATELET COUNT 158 X10'3 (140-440); RED BLOOD COUNT 2.57 X10'6 (4.20-5.60); RED CELL DISTRIBUTION WIDTH 20.4 % (11.5-14.5); WHITE BLOOD COUNT 3.7 X10'3 (4.5-11.0)
[2021-11-23 07:14] LABS: ALANINE AMINOTRANSFERASE 10 U/L (12-78); ALBUMIN 2.2 G/DL (3.4-5.0); ALBUMIN/GLOBULIN RATIO 0.6 (1.1-1.5); ALKALINE PHOSPHATASE 96 IU/L (46-116); ANION GAP 11 (8-16); ASPARTATE AMINO TRANSFERASE 18 U/L (10-37); BILIRUBIN,TOTAL 0.4 MG/DL (0.1-1.0); BLOOD UREA NITROGEN 15 MG/DL (7-18); BUN/CREATININE RATIO 3.3 (6.6-38.0); CALCIUM 8.7 MG/DL (8.5-10.1); CHLORIDE 102 MMOL/L (99-107); CREATININE 4.48 MG/DL (0.40-0.90); GLUCOSE 90 MG/DL (70-104); SODIUM 139 MMOL/L (135-145); TOTAL CARBON DIOXIDE 25.9 MMOL/L (24-32); TOTAL PROTEIN 5.9 G/DL (6.4-8.2); eGFR 10 ML/MIN
[2021-11-23] MEDS ORDERED: normal saline 1000ml 250 ML IV PRN (08:10)
[2021-11-23] MEDS ORDERED: EPOETIN ALFA-EPBX 20,000 UNIT/ML 1 ML MDV IV ONE (08:10)
[2021-11-23] MEDS ORDERED: LIDOcaine 1% (10mg/ml) 2ml vial SQ ONE (08:10)
[2021-11-23] MEDS ORDERED: normal saline 1000ml 100 ML IV PRN (08:10)
[2021-11-23] MEDS: FLUoxetine 20mg capsule PO SCH (09:02)
[2021-11-23] MEDS: pantoprazole 40MG/NS 100ML BAG 100 ML IV SCH (09:21)
[2021-11-23 11:00] VITALS: BP 176/67
[2021-11-23] MEDS ORDERED: KEP500T PO (13:53)
[2021-11-23] MEDS ORDERED: PANT40TA54 PO (13:53)
--- NOTE | 2021-11-23 14:21 | NUR ---
Initial: Pt admitted w/ ALOC and metabolic encephalopathy w/ hx ESRD on HD and found to have upper GI bleed s/p EGD 11/21 per EMR. Pt had HD 11/21 w/ 1L fluid out per EMR. Pt currently on SB7 diet pending PO trends, though recently on clear liquid diet w/ 100% PO intake meals, and previously on Renal diet w 75% avg PO intake meals. LBM 11/22 per EMR. No nutrition intervention implemented at this time. Will continue to follow. Recommendations: 1. Continue mechanical soft diet 2. Monitor need for ONS pending PO trends 3. Routine bowel care 4. Scaled wt this admit; subsequent weekly scaled wts on HD Addendum: 11/23/21 at [address] Amended: Links added. Addendum: 11/23/21 at [address] I have reviewed and agree with note by [employer] Setters Installer. JACQUELYN Fitzpatrick
[2021-11-23 15:00] VITALS: BP 143/71
[2021-11-23] MEDS: ciprofloxacin lact 400MG/200ML 200 ML IV SCH (15:50)
[2021-11-23] MEDS: metroNIDAZOLE-Flagyl 500mg/NS 100 ML IV SCH ×2 (16:48→16:53)
[2021-11-23 17:32] VITALS: BP_SYST 143
[2021-11-23] MEDS: losartan 25mg tablet PO SCH (17:32)
--- NOTE | 2021-11-23 17:56 | NUR ---
pt. given discharge instructions without further questions. Peripheral IV removed, catheter tip intact. Pt. left unit at 1745
[2021-11-23] MEDS ORDERED: pantoprazole 40mg Tablet.DR PO SCH (20:00)
== END 2021-11-23 17:42 | disposition home or self-care (01) | DRG 377 ==
LOC: ER 16:13 → ED HOLD 11-19 00:18 → SUR 3N 11-19 00:42 → PCU 3S 11-19 13:20
PROVIDERS: ADMIT Family Medicine; ATTEND Internal Medicine
PROC: 4A10X4Z Monitoring of Central Nervous Electrical Activity, External Approach (ICD-10-PCS; 2021-11-18)
PROC: 30233N1 Transfusion of Nonautologous Red Blood Cells into Peripheral Vein, Percutaneous Approach (ICD-10-PCS; principal; 2021-11-19)
PROC: 4A10X4Z Monitoring of Central Nervous Electrical Activity, External Approach (ICD-10-PCS; 2021-11-19)
PROC: 5A1D70Z Performance of Urinary Filtration, Intermittent, Less than 6 Hours Per Day (ICD-10-PCS; 2021-11-19)
PROC: 4A10X4Z Monitoring of Central Nervous Electrical Activity, External Approach (ICD-10-PCS; 2021-11-20)
PROC: 5A1D70Z Performance of Urinary Filtration, Intermittent, Less than 6 Hours Per Day (ICD-10-PCS; 2021-11-21)
PROC: 0W3P8ZZ Control Bleeding in Gastrointestinal Tract, Via Natural or Artificial Opening Endoscopic (ICD-10-PCS; 2021-11-21)
PROC: 5A1D70Z Performance of Urinary Filtration, Intermittent, Less than 6 Hours Per Day (ICD-10-PCS; 2021-11-23)
DX: K31.811 Angiodysplasia of stomach and duodenum with bleeding (principal); G93.41 Metabolic encephalopathy; N18.6 End stage renal disease; I13.2 Hypertensive heart and chronic kidney disease with heart failure and with stage 5 chronic kidney disease, or end stage renal disease; D62 Acute posthemorrhagic anemia; E44.0 Moderate protein-calorie malnutrition; R47.01 Aphasia; Z68.1 Body mass index [BMI] 19.9 or less, adult; I50.32 Chronic diastolic (congestive) heart failure; D63.1 Anemia in chronic kidney disease; Z66 Do not resuscitate; R56.9 Unspecified convulsions; E88.09 Other disorders of plasma-protein metabolism, not elsewhere classified; K57.90 Diverticulosis of intestine, part unspecified, without perforation or abscess without bleeding; K76.89 Other specified diseases of liver; R47.1 Dysarthria and anarthria; D72.819 Decreased white blood cell count, unspecified; K44.9 Diaphragmatic hernia without obstruction or gangrene; F03.90 Unspecified dementia, unspecified severity, without behavioral disturbance, psychotic disturbance, mood disturbance, and anxiety; Z82.71 Family history of polycystic kidney; Z86.73 Personal history of transient ischemic attack (TIA), and cerebral infarction without residual deficits; Z90.49 Acquired absence of other specified parts of digestive tract; Z90.710 Acquired absence of both cervix and uterus; Z99.2 Dependence on renal dialysis; Z91.041 Radiographic dye allergy status; Z88.2 Allergy status to sulfonamides; Z79.899 Other long term (current) drug therapy; R29.704 NIHSS score 4
CPT/HCPCS: 36415; 36430; 43255; 70450; 71045; 74176; 80053; 80305; 81001; 82140; 82272; 82948; 83605; 83690; 83735; 83880; 84100; 84145; 84443; 84484; 85008; 85025; 85610; 85730; 86885; 86900; 86901; 86920; 87081; 87088; 92508; 92616; 93005; 93306; 95816; 97116; 97161; 97530; 99152; 99285; A4620; C9113; G0257; G0378; J0744; J1644; J2250; J2543; J3010; J3490; J7030; J7042; P9016; Q4081

== ENCOUNTER 2021-12-26 20:27 | Emergency (ER) | payer MEDICARE, MEDICAID ==
[~2021-12-26] VITALS: Ht 152.4 cm; Wt 43.2 kg
[~2021-12-26 20:27] MED LIST changes: +ALPR0.5T8 PO; +FOLI1TAB34 PO; +LEVE500T PO; +NOR5T PO; +PANT-47 PO; -PANT40TA54 PO; +PHEN50TA PO
--- NOTE | 2021-12-26 21:12 | NUR ---
Pt to CT by wheelchair
[2021-12-26 21:27] VITALS: BP 171/70
== END 2021-12-26 22:28 | disposition home or self-care (01) ==
LOC: ER 20:30
DX: S00.03XA Contusion of scalp, initial encounter (principal); K21.9 Gastro-esophageal reflux disease without esophagitis; I12.0 Hypertensive chronic kidney disease with stage 5 chronic kidney disease or end stage renal disease; E11.22 Type 2 diabetes mellitus with diabetic chronic kidney disease; N18.6 End stage renal disease; Z86.73 Personal history of transient ischemic attack (TIA), and cerebral infarction without residual deficits; Z86.69 Personal history of other diseases of the nervous system and sense organs; Z99.2 Dependence on renal dialysis; Z90.89 Acquired absence of other organs; Z90.49 Acquired absence of other specified parts of digestive tract; Z90.710 Acquired absence of both cervix and uterus; Z88.2 Allergy status to sulfonamides; Z88.8 Allergy status to other drugs, medicaments and biological substances; Z79.899 Other long term (current) drug therapy
CPT/HCPCS: 70450; 99284

== ENCOUNTER 2022-02-05 15:03 | Outpatient (CLI) | payer MEDICARE, MEDICAID | END 2022-02-05 23:59 | disposition home or self-care (01) | LOC: RAD 15:03 | PROVIDERS: ATTEND Psychiatry & Neurology Neurology | DX: R94.01 Abnormal electroencephalogram [EEG] (principal); G40.901 Epilepsy, unspecified, not intractable, with status epilepticus | CPT/HCPCS: 95816 ==

== ENCOUNTER 2022-05-06 14:13 | Emergency (ER) | payer MEDICARE, MEDICAID ==
[~2022-05-06] VITALS: Ht 152.4 cm; Wt 45.5 kg
[~2022-05-06 14:13] MED LIST changes: +AMLO-708 PO; +APIX5TAB3 PO; -LOSA25TA41 PO; -NOR5T PO; +PHEN100C12 PO; -PHEN50TA PO
[2022-05-06 16:22] LABS: BASOPHILS # (AUTO) 0.1 X10'3 (0-0.2); BASOPHILS % (AUTO) 1.1 % (0-1); EOSINOPHILS # (AUTO) 0.1 X10'3 (0-0.9); EOSINOPHILS % (AUTO) 2.2 % (0-6); LYMPHOCYTES # (AUTO) 0.8 X10'3 (1.1-4.8); LYMPHOCYTES % (AUTO) 13.1 % (21-51); MEAN CORPUSCULAR HEMOGLOBIN 27.9 PG (27.0-31.0); MEAN CORPUSCULAR HGB CONC 32.2 g/dL (33.0-36.5); MEAN CORPUSCULAR VOLUME 86.7 FL (78-98); MEAN PLATELET VOLUME 8.1 FL (7.4-10.4); MONOCYTES # (AUTO) 0.6 X10'3 (0-0.9); MONOCYTES % (AUTO) 9.6 % (2-12); NEUTROPHILS # (AUTO) 4.6 X10'3 (1.8-7.7); PLATELET COUNT 189 X10'3 (140-440); RED BLOOD COUNT 3.23 X10'6 (4.20-5.60); RED CELL DISTRIBUTION WIDTH 17.6 % (11.5-14.5); WHITE BLOOD COUNT 6.2 X10'3 (4.5-11.0)
[2022-05-06 16:38] LABS: ALANINE AMINOTRANSFERASE 11 U/L (12-78); ALBUMIN 2.6 G/DL (3.4-5.0); ALBUMIN/GLOBULIN RATIO 0.6 (1.1-1.5); ALKALINE PHOSPHATASE 104 IU/L (46-116); ANION GAP 7 (8-16); ASPARTATE AMINO TRANSFERASE 16 U/L (10-37); BILIRUBIN,TOTAL 0.3 MG/DL (0.1-1.0); BLOOD UREA NITROGEN 51 MG/DL (7-18); BUN/CREATININE RATIO 9.1 (6.6-38.0); CHLORIDE 93 MMOL/L (99-107); CREATININE 5.61 MG/DL (0.40-0.90); GLUCOSE 87 MG/DL (70-104); POTASSIUM 5.5 MMOL/L (3.5-5.1); SODIUM 136 MMOL/L (135-145); TOTAL CARBON DIOXIDE 36.5 MMOL/L (24-32); TOTAL PROTEIN 7.1 G/DL (6.4-8.2); eGFR 7 ML/MIN
[2022-05-06 16:47] LABS: CREATINE KINASE 33 U/L (26-192); LIPASE 266 U/L (73-393); MAGNESIUM 2.1 MG/DL (1.5-2.4)
[2022-05-06 19:33] VITALS: BP 164/84
== END 2022-05-06 20:10 | disposition home or self-care (01) ==
LOC: ER 14:14
DX: Z00.00 Encounter for general adult medical examination without abnormal findings (principal); S30.0XXA Contusion of lower back and pelvis, initial encounter; K21.9 Gastro-esophageal reflux disease without esophagitis; I12.9 Hypertensive chronic kidney disease with stage 1 through stage 4 chronic kidney disease, or unspecified chronic kidney disease; N18.9 Chronic kidney disease, unspecified; Z88.2 Allergy status to sulfonamides; Z91.041 Radiographic dye allergy status; Z98.890 Other specified postprocedural states; Z90.49 Acquired absence of other specified parts of digestive tract; Z90.710 Acquired absence of both cervix and uterus; X58.XXXA Exposure to other specified factors, initial encounter; Y93.89 Activity, other specified; Y92.89 Other specified places as the place of occurrence of the external cause; Y99.8 Other external cause status
CPT/HCPCS: 36415; 71045; 72170; 80053; 82140; 82550; 83605; 83690; 83735; 83880; 84443; 84484; 85025; 85610; 93005; 99285

== ENCOUNTER 2022-05-08 17:10 | Emergency (ER) | payer MEDICARE, MEDICAID ==
[~2022-05-08] VITALS: Ht 152.4 cm; Wt 44.1 kg
[2022-05-08 17:11] VITALS: BP 180/70
[2022-05-08 17:45] LABS: BASOPHILS # (AUTO) 0.1 X10'3 (0-0.2); BASOPHILS % (AUTO) 0.6 % (0-1); EOSINOPHILS # (AUTO) 0.1 X10'3 (0-0.9); EOSINOPHILS % (AUTO) 0.6 % (0-6); HEMATOCRIT 30.9 % (35.0-45.0); LYMPHOCYTES # (AUTO) 0.7 X10'3 (1.1-4.8); LYMPHOCYTES % (AUTO) 7.7 % (21-51); MEAN CORPUSCULAR HEMOGLOBIN 27.8 PG (27.0-31.0); MEAN CORPUSCULAR HGB CONC 32.4 g/dL (33.0-36.5); MEAN CORPUSCULAR VOLUME 85.8 FL (78-98); MEAN PLATELET VOLUME 7.9 FL (7.4-10.4); MONOCYTES # (AUTO) 0.7 X10'3 (0-0.9); MONOCYTES % (AUTO) 7.9 % (2-12); NEUTROPHILS # (AUTO) 7.6 X10'3 (1.8-7.7); NEUTROPHILS % (AUTO) 83.2 % (42-75); PLATELET COUNT 237 X10'3 (140-440); RED CELL DISTRIBUTION WIDTH 18.4 % (11.5-14.5); WHITE BLOOD COUNT 9.2 X10'3 (4.5-11.0)
[2022-05-08 17:58] LABS: ALANINE AMINOTRANSFERASE 10 U/L (12-78); ALBUMIN 2.7 G/DL (3.4-5.0); ALBUMIN/GLOBULIN RATIO 0.5 (1.1-1.5); ALKALINE PHOSPHATASE 115 IU/L (46-116); ANION GAP 7 (8-16); ASPARTATE AMINO TRANSFERASE 17 U/L (10-37); BILIRUBIN,TOTAL 0.5 MG/DL (0.1-1.0); BLOOD UREA NITROGEN 44 MG/DL (7-18); BUN/CREATININE RATIO 7.7 (6.6-38.0); CALCIUM 9.2 MG/DL (8.5-10.1); CHLORIDE 94 MMOL/L (99-107); CREATININE 5.69 MG/DL (0.40-0.90); GLUCOSE 112 MG/DL (70-104); LIPASE 197 U/L (73-393); POTASSIUM 5.1 MMOL/L (3.5-5.1); SODIUM 137 MMOL/L (135-145); TOTAL CARBON DIOXIDE 35.7 MMOL/L (24-32); TOTAL PROTEIN 7.8 G/DL (6.4-8.2); eGFR 7 ML/MIN
== END 2022-05-09 03:00 | disposition left against medical advice (07) ==
LOC: ER 17:11
DX: R10.9 Unspecified abdominal pain (principal); Z53.21 Procedure and treatment not carried out due to patient leaving prior to being seen by health care provider
CPT/HCPCS: 36415; 80053; 83690; 85025

== ENCOUNTER 2022-06-15 10:08 | Emergency (ER) | payer MEDICARE, MEDICAID ==
[~2022-06-15] VITALS: Ht 152.4 cm; Wt 59.1 kg
[2022-06-15 10:56] VITALS: BP 156/60
[2022-06-15 11:42] LABS: BASOPHILS % (AUTO) 0.3 % (0-1); EOSINOPHILS # (AUTO) 0.1 X10'3 (0-0.9); EOSINOPHILS % (AUTO) 0.6 % (0-6); HEMATOCRIT 23.1 % (35.0-45.0); HEMOGLOBIN 7.9 g/dl (12.0-16.0); LYMPHOCYTES # (AUTO) 0.7 X10'3 (1.1-4.8); MEAN CORPUSCULAR HEMOGLOBIN 30.1 PG (27.0-31.0); MEAN CORPUSCULAR HGB CONC 34.1 g/dL (33.0-36.5); MEAN CORPUSCULAR VOLUME 88.5 FL (78-98); MEAN PLATELET VOLUME 7.9 FL (7.4-10.4); MONOCYTES # (AUTO) 0.7 X10'3 (0-0.9); MONOCYTES % (AUTO) 8.2 % (2-12); NEUTROPHILS # (AUTO) 7.5 X10'3 (1.8-7.7); NEUTROPHILS % (AUTO) 82.9 % (42-75); PLATELET COUNT 165 X10'3 (140-440); RED BLOOD COUNT 2.61 X10'6 (4.20-5.60); RED CELL DISTRIBUTION WIDTH 22.8 % (11.5-14.5); WHITE BLOOD COUNT 9.1 X10'3 (4.5-11.0)
[2022-06-15 12:00] LABS: ALANINE AMINOTRANSFERASE 477 U/L (12-78); ALBUMIN/GLOBULIN RATIO 0.6 (1.1-1.5); ALKALINE PHOSPHATASE 164 IU/L (46-116); ANION GAP 10 (8-16); ASPARTATE AMINO TRANSFERASE 76 U/L (10-37); BILIRUBIN,TOTAL 1.7 MG/DL (0.1-1.0); BLOOD UREA NITROGEN 32 MG/DL (7-18); BUN/CREATININE RATIO 6.8 (6.6-38.0); CALCIUM 8.4 MG/DL (8.5-10.1); CHLORIDE 92 MMOL/L (99-107); CREATININE 4.71 MG/DL (0.40-0.90); GLUCOSE 91 MG/DL (70-104); POTASSIUM 3.3 MMOL/L (3.5-5.1); SODIUM 139 MMOL/L (135-145); TOTAL CARBON DIOXIDE 37.1 MMOL/L (24-32); TOTAL PROTEIN 7.7 G/DL (6.4-8.2); eGFR 9 ML/MIN
--- NOTE | 2022-06-15 12:37 | NUR ---
CALL PLACED TO [facility] FOR UPDATE ON PTS H/H. IMFORMED THEM THAT MATT GRAMAJO HAS BEEN IN CONTACT WITH DR MOORE HE IS AWARE OF IMPROVED H/H AND THAT PT IS GUIAC POSITIVE. PER [facility] PT CAN COME DIRECTLY OVER FROM HERE [facility] FOR HER HD TX TODAY. CALL PLACED TO [facility] CAREG[facility] HE WILL BE HERE IN APROX 10 MIN AND WILL TAKE HER DIRECTLY TO [facility]
[2022-06-15 12:40] LABS: PLATELET ESTIMATE NORMAL
[2022-06-15 12:41] LABS: ANISOCYTOSIS 3+; ELLIPTOCYTES 1+; POLYCHROMASIA 1+; ROULEAUX 1+
[2022-06-15 12:42] LABS: OCCULT BLOOD STOOL POSITIVE (Neg)
== END 2022-06-15 13:05 | disposition home or self-care (01) ==
LOC: ER 10:09
DX: D64.9 Anemia, unspecified (principal); K21.9 Gastro-esophageal reflux disease without esophagitis; I12.0 Hypertensive chronic kidney disease with stage 5 chronic kidney disease or end stage renal disease; E13.22 Other specified diabetes mellitus with diabetic chronic kidney disease; Z99.2 Dependence on renal dialysis; Z90.49 Acquired absence of other specified parts of digestive tract; Z88.2 Allergy status to sulfonamides; Z79.899 Other long term (current) drug therapy
CPT/HCPCS: 36415; 80053; 82272; 85008; 85025; 86885; 86900; 86901